=== PATIENT | female | born 1930 | race Caucasian/White ===

== ENCOUNTER 2017-12-27 20:15 | Inpatient (IN) | payer MEDICARE ==
[~2017-12-27] VITALS: Ht 142.2 cm; Wt 43.1 kg
--- NOTE | 2017-12-27 21:00 | NUR ---
PT PRESENTED TO THE ER WITH A C/O ABD PAIN AND DIARRHEA SINCE 1400 TODAY. PT STATED THAT SHE DID NOT EAT ANYTHING DIFFERENT, DENIES COLD OR FLU LIKE SYMPTOMS AND HAS NOT STARTED ANY NEW MEDICATIONS. PT IS AA&O X4. PT IS ON THE MONITOR AND CONTINOUS PULSE OX. PT IS REFUSING A RITTER CATH AND STATED THAT SHE CAN NOT GIVE A CLEAN CATCH URINE DUE TO THE DIARRHEA. DR. MANLEY NOTIFIED.
--- NOTE | 2017-12-27 21:07 | NUR ---
BLOOD SENT TO LAB.
--- NOTE | 2017-12-27 21:10 | NUR ---
PT AMBULATED TO THE BATHROOM WITH A STEADY GAIT.
[2017-12-27 21:11] LABS: HEMATOCRIT 50 % (33-45); MEAN CORPUSCULAR VOLUME 87 fL (82-100); RED BLOOD CELL COUNT(AUTO) 5.68 MIL/uL (4.0-5.2)
[2017-12-27 21:14] LABS: BASOPHILS # (AUTO) 0.3 /CMM (0.0-0.2); BASOPHILS % (AUTO) 1.3 % (0.0-2.0); EOSINOPHILS % (AUTO) 1.1 % (0.0-6.0); HEMOGLOBIN 17.3 g/dL (11.5-14.8); LYMPHOCYTES # (AUTO) 2.6 /CMM (0.8-4.8); MEAN CORPUSCULAR HGB CONC 35 g/dl (31.0-36.0); MONOCYTES % (AUTO) 4.4 % (2.0-12.0); NEUTROPHILS # (AUTO) 19.6 /CMM (1.8-8.9); NEUTROPHILS % (AUTO) 82.2 % (43.0-81.0); PLATELET COUNT (AUTO) 333 /CMM (150-450); RDW COEFFICIENT OF VARIATION 12.6 (11.5-15.0); WHITE BLOOD COUNT (AUTO) 23.8 K/uL (4.3-11.0)
[2017-12-27 21:25] LABS: CARBON DIOXIDE 29 mmol/L (21-32); CHLORIDE 99 mmol/L (98-107); CREATININE 1.1 mg/dL (0.6-1.3); GLUCOSE 150 mg/dL (74-106); SODIUM SERUM 136 mmol/L (136-145); UREA NITROGEN, BLOOD 17 mg/dL (7-18)
[2017-12-27 21:28] LABS: INR 0.91 (0.85-1.15)
[2017-12-27 21:32] LABS: ALANINE AMINOTRANSFERASE 31 U/L (12-78); ALBUMIN 3.7 g/dL (3.4-5.0); ALKALINE PHOSPHATASE 131 U/L (46-116); ASPARTATE AMINOTRANSFERASE 22 U/L (15-37); BILIRUBIN,DIRECT 0.1 mg/dL (0.0-0.2); BILIRUBIN,TOTAL 0.4 mg/dL (0.2-1.0); LIPASE 269 U/L (73-393); TOTAL PROTEIN, SERUM 7.8 g/dL (6.4-8.2)
[2017-12-27] MEDS ORDERED: CIPROFLOXACIN IV RTU 400 MG in PREMIX 1 EA IV STA (21:45)
[2017-12-27 21:48] LABS: LYMPHOCYTES % (MANUAL) 6 % (16-48); MONOCYTES % (MANUAL) 18 % (0-11.0); NEUTROPHILS % (MANUAL) 76 (42-76)
[2017-12-27] MEDS ORDERED: CIPROFLOXACIN IV RTU 200 ML IV ONE (21:50)
[2017-12-27] MEDS ORDERED: METRONIDAZOLE 500MG/ NS 100ML 100 ML IV ONE (21:50)
[2017-12-27] MEDS ORDERED: FLAGYL/NS RTU 500 MG/100 ML PIGGYBACK IV ONE (22:00)
--- NOTE | 2017-12-27 22:05 | NUR ---
PT'S BP IS STILL ELEVATED.
--- NOTE | 2017-12-27 22:06 | NUR ---
CALLED [employer] CAP INSPECTOR WAS PAGED.
--- NOTE | 2017-12-27 22:10 | NUR ---
ROOM [id number]
--- NOTE | 2017-12-27 22:21 | NUR ---
CALL MAC IBARRA, AT [phone]
[2017-12-27] MEDS ORDERED: ONDANSETRON HCL/PF 4 MG/2 ML VIAL ONE (22:27)
[2017-12-27] MEDS ORDERED: MORPHINE SULFATE INJ 4 MG/ML DISP.SYRIN ONE (22:27)
[2017-12-27] MEDS ORDERED: ONDANSETRON HCL/PF - ER 4 MG/2 ML VIAL IV ONE (22:30)
[2017-12-27] MEDS ORDERED: MORPHINE SULFATE INJ 2 MG/ML DISP.SYRIN IV PRN (22:30)
[2017-12-27] MEDS ORDERED: NIFE-2 PO (22:33)
[2017-12-27] MEDS ORDERED: TRAZ-182 PO (22:33)
[2017-12-27] MEDS ORDERED: SIMV40TA5 PO (22:33)
[2017-12-27] MEDS ORDERED: VALS320T2 PO (22:33)
[2017-12-27] MEDS ORDERED: AMLO5TAB7 PO (22:33)
[2017-12-27] MEDS ORDERED: HYDR-4076 PO (22:33)
[2017-12-27] MEDS ORDERED: LEVO50TA8 PO (22:33)
[2017-12-27] MEDS ORDERED: CARV12.52 PO (22:33)
[2017-12-27] MEDS ORDERED: CITA10TA9 PO (22:33)
--- NOTE | 2017-12-27 22:38 | NUR ---
REPORT GIVEN TO NICOLETTE/RN ON BEHALF OF PRIMARY NURSE NITISH.
--- NOTE | 2017-12-27 22:38 | NUR ---
ENDORSED CIPRO IV TO RECEIVING NURSE NICOLETTE TO INFUSE ON THE FLOOR. FLAGYL INFUSING TO THE FLOOR WITH PT.
--- NOTE | 2017-12-27 22:46 | NUR ---
PT'S O2 SAT DROPPED TO 90%. PT WAS PLACED ON 2L O2 VIA NC.
--- NOTE | 2017-12-27 22:50 | NUR ---
PT LEFT VIA GURNEY TO MS.
[2017-12-27 22:55] VITALS: BP 156/80
--- NOTE | 2017-12-27 22:55 | NUR ---
ADMISSION NOTES: RECEIVED REPORT FROM KIARA CARRINGTON, PT IS 87 Y/F, CAME IN FOR DIARRHEA SINCE 1300 AND NAUSEA AND FEELING OF DRY HEAVES, WILL BE ADMITTED FOR ACUTE COLITIS. PT HAS LEFT AC G 20 PATENT AND FLUSHING WELL, CURRENTLY INFUSING WITH FLAGYL (ABOUT TO FINISH). PT IS A/O X4 AMBULATORY ON RA DENIES ANY SOB BUT IS C/O ABDOMINAL PAIN, CRAMPING AND BELCHING. PT ASSISTED TO THE BATHROOM AND HAVE BOWEL MOVEMENT NOTED TO BE LIQUID AND BLOODY IT IS REDDISH IN COLOR, PT STATED ITS MIXED WITH HER URINE SO UNABLE TO COLLECT STOOL SPECIMEN FOR LAB. WILL TRY AGAIN LATER. SKIN ASSESSMENT PERFORMED AND NO SKIN ISSUES NOTED. INVENTORY OF BELONGINGS COMPLETED AND PERFORMED BY PEER TUTOR, PT HAS BILATERAL HEARING AIDS AND PLACED IN A CONTAINER WITH PT'S NAME/STICKER. ORIENTED PT TO UNIT POLICY AND HOURLY ROUNDING, VS TAKEN AND RECORDED, SAFETY PRECAUTIONS FOR FALL INITIATED, CALL LIGHT IN REACH, WILL CONTINUE MONITORING PT
[2017-12-27 22:56] LABS: APPEARANCE,URINE CLEAR (CLEAR); BILIRUBIN,URINE NEGATIVE (NEGATIVE); BLOOD, URINE TRACE-INTA Ery/uL (NEGATIVE); KETONES,URINE NEGATIVE (NEGATIVE); LEUKOCYTE ESTERASE ,URINE NEGATIVE (NEGATIVE); NITRITE, URINE NEGATIVE (NEGATIVE); PROTEIN,URINE NEGATIVE (NEGATIVE); UGLUCOSE NEGATIVE (NEGATIVE); UROBILINOGEN,URINE 0.2 EU/dL (0.2)
[2017-12-27 22:57] LABS: COLOR,URINE DARK YELLOW (YELLOW)
[2017-12-27 23:04] LABS: BACTERIA,URINE Few /HPF (None Seen); SQUAMOUS EPITHELIAL CELL,UR Few /HPF (None Seen); WBC,URINE 0-2 /HPF (0-3)
--- NOTE | 2017-12-27 23:16 | NUR ---
PT NEW ADMIT, PER RESPIRATORY CARE ASSISTANT VERENA UNABLE TO ADMINISTER CIPRO IN ER PT STILL RECEIVING FLAGYL. WHEN PT REACH THE FLOOR/MS 2 UNIT, FLAGYL IS FINISHED. RECEIVED CALL FROM SONA ALBARADO, STATED TO ADMINISTER CIPRO PER MD ORDER. NOW ADMINISTERING CIPRO.
[2017-12-27] MEDS ORDERED: LEVOFLOXACIN 500 MG /D5W 100ML 500 MG in PREMIX 1 EA IV SCH (23:30)
[2017-12-27] MEDS ORDERED: Z GUARD REMEDY 2 OZ OINT TP PRN (23:30)
[2017-12-27] MEDS ORDERED: MAGNESIUM HYDROXIDE 30 ML UDC PO PRN (23:30)
--- NOTE | 2017-12-27 23:40 | NUR ---
RN NOTES: VOICE STUDIES DIRECTOR MD CURRENTLY AT BED SIDE FOR EVAL AND H&P. INFORMED MD REGARDING PT'S CODE STATUS RELAYING SHE WOULD LIKE TO BE DNR, BUT LIVING WILL COPY COULD NOT BE PROVIDED HER DAUGHTER LIVES IN [place].
--- NOTE | 2017-12-27 23:45 | NUR ---
RN NOTES: MD MADE AWARE OF PT'S BLOODY STOOL, BUT NO FOUL ODOR NOTED, WILL COLLECT STOOL SPECIMEN FOR CDIFF AND CULTURE
--- NOTE | 2017-12-27 23:48 | NUR ---
NON ADMIN OF LEVAQUIN: DR SERRA AT BED SIDE, INFORMED MD ABOUT IV ATB PT RECEIVED SUCH FLAGYL AND NOW CIPROFLOXACIN IS INFUSING, RN INFORMED MD REGARDING HIS ORDER FOR LEVAQUIN, PER MD DO NOT GIVE THE LEVAQUIN TONIGHT BUT INSTEAD JUST GIVE IT TOMORROW SINCE PT ALREADY RECEIVED CIPROFLOXACIN NOW.
[2017-12-27] MEDS: MAG HYDROX/AL HYDROX/SIMETH 30 ML UDC PO PRN (23:54)
[2017-12-27] MEDS: HYDROCODONE/APAP 5/325MG 1 EACH TABLET PO PRN (23:55)
--- NOTE | 2017-12-27 23:55 | NUR ---
PRN NORCO AND MAALOX: ADMINISTERED PRN NORCO 5/325 MG FOR PT'S C/O ABDOMINAL PAIN /10 AND MAALOX FOR PT'S C/O BELCHING. WILL CONTINUE MONITORING PT
[2017-12-28] VITALS: BP 156/80
--- NOTE | 2017-12-28 00:17 | NUR ---
RN NOTES: PER CLIENT SERVICES ACCOUNT MANAGER MD TO ORDER MORPHINE 1MG IVP EVERY 4HRS PRN FOR SEVERE PAIN TO HELP MANAGING PATIENT'S PAIN
[2017-12-28] MEDS: IV NS 0.9% 1,000 ML IV PRN ×2 (00:20→16:40)
[2017-12-28 01:00] VITALS: BP 144/77
[2017-12-28] MEDS: MORPHINE SULFATE INJ 2 MG/ML DISP.SYRIN IV PRN ×4 (01:08→16:39)
--- NOTE | 2017-12-28 01:08 | NUR ---
PRN MORPHINE: PRN MORPHINE 1MG IVP ADMINISTERED TO THE PT FOR C/O 9/10 ABDOMINAL PAIN, WILL CONTINUE TO MONITOR AND REASSESS
[2017-12-28] MEDS: ONDANSETRON HCL/PF 4 MG/2 ML VIAL IVP PRN ×2 (02:26→08:27)
--- NOTE | 2017-12-28 02:26 | NUR ---
PRN ZOFRAN: PRN ZOFRAN ADMINISTERED FOR PT'S C/O NAUSEA
[2017-12-28] MEDS: HYDROCODONE/APAP 5/325MG 1 EACH TABLET PO PRN ×2 (04:03→11:30)
--- NOTE | 2017-12-28 04:04 | NUR ---
PRN NORCO: PT STILL C/O ABDOMINAL PAIN, REQUESTING FOR NORCO. PRN NORCO ADMINISTERED TO THE PT AT THIS TIME.
[2017-12-28] MEDS ORDERED: METRONIDAZOLE 500MG/ NS 100ML 100 ML IV ONE (05:44)
[2017-12-28] MEDS: METRONIDAZOLE 500MG/ NS 100ML 500 MG in PREMIX 1 EA IV SCH ×3 (05:48→21:20)
[2017-12-28 05:50] VITALS: BP 146/80
--- NOTE | 2017-12-28 06:01 | NUR ---
prn morphine: pt c/o 05/22 abdominal pain, stated its a lot better but the pain still there and its giving her discomfort, pt requesting for morphine, prn morphine 1mg ivp administered to the pt at this time, will continue monitoring pt's pain level
[2017-12-28 06:44] LABS: HEMATOCRIT 49 % (33-45); HEMOGLOBIN 16.3 g/dL (11.5-14.8); LYMPHOCYTES % (AUTO) 6.7 % (20.0-44.0); MEAN CORPUSCULAR HGB CONC 33 g/dl (31.0-36.0); MEAN CORPUSCULAR VOLUME 89 fL (82-100); MONOCYTES # (AUTO) 0.7 /CMM (0.1-1.30); MONOCYTES % (AUTO) 2.2 % (2.0-12.0); NEUTROPHILS # (AUTO) 27.5 /CMM (1.8-8.9); NEUTROPHILS % (AUTO) 91.1 % (43.0-81.0); PLATELET COUNT (AUTO) 307 /CMM (150-450); RDW COEFFICIENT OF VARIATION 13.8 (11.5-15.0); RED BLOOD CELL COUNT(AUTO) 5.53 MIL/uL (4.0-5.2)
[2017-12-28 06:52] LABS: CHOLESTEROL 169 mg/dL (<200); HDL CHOLESTEROL 92 mg/dL (40-60); LDL 87 mg/dL (0-99); TRIGLYCERIDES 98 mg/dL (30-150)
--- NOTE | 2017-12-28 06:53 | NUR ---
RN CLOSING NOTES: PT IN BED, AWAKE, REMAINS ON RA, LAST PAIN MEDS GIVEN AT 0600AM, PT STILL C/O ABDOMINAL CRAMPING. IV ACCESS REMAINS PATENT AND FLUSHING WELL, INFUSING WITH NS AT 75ML/HR. STILL NEEDS STOOL FOR CDIFF, UNABLE TO COLLECT DUE TO STOOL KEPT MIXING WITH URINE DESPITE PUTTING 2 HATS IN THE TOILET BOWL. WILL INFORM DAY RN TO PLEASE COLLECT TODAY, VS REMAINS STABLE, NEEDS ATTENDED. SAFETY PRECAUTIONS FOR FALL REMAINS ENGAGED, CALL LIGHT IN REACH, WILL ENDORSE TO DAY RN FOR RICHI.
[2017-12-28 06:54] LABS: ALANINE AMINOTRANSFERASE 20 U/L (12-78); ALBUMIN 3.2 g/dL (3.4-5.0); ALKALINE PHOSPHATASE 110 U/L (46-116); ASPARTATE AMINOTRANSFERASE 19 U/L (15-37); BILIRUBIN,TOTAL 1.4 mg/dL (0.2-1.0); CALCIUM, SERUM 10.3 mg/dL (8.5-10.1); CARBON DIOXIDE 27 mmol/L (21-32); CHLORIDE 101 mmol/L (98-107); GLUCOSE 138 mg/dL (74-106); MAGNESIUM 2.2 mg/dL (1.8-2.4); PHOSPHORUS 4.2 mg/dL (2.5-4.9); POTASSIUM 4.9 mmol/L (3.5-5.1); SODIUM SERUM 135 mmol/L (136-145); TOTAL PROTEIN, SERUM 6.8 g/dL (6.4-8.2); UREA NITROGEN, BLOOD 14 mg/dL (7-18)
--- NOTE | 2017-12-28 06:55 | NUR ---
CRITICAL LAB RESULT FOR WBC: RECEIVED CRITICAL LAB RESULT FOR WBC 30.2, REPORTED BY CHANTEL FROM LAB, CONTA[facility]ED [facility] DIRECTOR OF CRITICAL CARE , AWAITING FOR CALL BACK. PT ON IV ANTIBIOTIC FLAGYL AND CIPROFLOXACIN AND WILL HAVE LEVAQUIN DURING THE MORNING
[2017-12-28 06:56] LABS: WHITE BLOOD COUNT (AUTO) 30.2 K/uL (4.3-11.0)
--- NOTE | 2017-12-28 07:07 | NUR ---
RN NOTES: PER MD ORDER TO GIVE LEVOFLOXACIN IN THE MORNING INSTEAD OF LAST NIGHT, THIS MEDICATION IS SCHEDULED LAST NIGHT AT 2330 HOWEVER DURING MD ROUNDS WHEN HE WAS TALKING TO THE PT, RN INFORMED MD THAT PT RECEIVED FLAGYL IV IN ER AND CIPROFLOXACIN IN THE UNIT (MS2), MD STATED TO JUST GIVE LEVOFLOXACIN IN THE MORNING. RELAYED TO PHARMACY, TALKED TO SESAR, AND SESAR STATED TO PUT A NEW ORDER TO CHANGE THE TIME OF THE ANTIBIOTIC SO IT WILL BE GIVEN IN THE MORNING.
--- NOTE | 2017-12-28 07:20 | NUR ---
RN NOTES: PT IN BED, AWAKE, REMAINS ON RA, LAST PAIN MEDS GIVEN AT 0600AM, PT STILL C/O ABDOMINAL CRAMPING, CONTINUED ON PAIN MANAGEMENT. IV ACCESS REMAINS PATENT AND FLUSHING WELL, INFUSING WITH NS AT 75ML/HR. STILL NEEDS STOOL FOR CDIFF, WILL REATTEMPT COLLECTION. VS REMAINS STABLE, NEEDS ATTENDED. SAFETY PRECAUTIONS FOR FALL REMAINS IN PLACE, CALL LIGHT IN REACH, WILL CONTINUE TO MONITOR
--- NOTE | 2017-12-28 07:36 | NUR ---
RN NOTES: RECEIVED CALL FROM DR LYMAN, RELAYED CRITICL LAB RESULT FOR WBC 30.2, INFORMED MD ABOUT PT ON IV ATB, PER MD "THAT'S OKAY FOR NOW, AND WILL WAIT FOR THE RESULT OF STOOL IF ITS POSITIVE FOR CDIFF, IF PT IS POSITIVE FOR CDIFF THEN FLAGYL WILL BE DC, BUT SINCE THERE IS NOT RESULT YET, SAID ITS OKAY FOR PT TO BE ON FLAGYL".
[2017-12-28 08:00] VITALS: BP 171/67
[2017-12-28] MEDS: AMLODIPINE BESYLATE 5 MG TABLET PO SCH (08:28)
[2017-12-28] MEDS: CARVEDILOL 12.5 MG TABLET PO SCH ×2 (08:28→16:39)
[2017-12-28] MEDS: hydrALAZINE HCL 25 MG TABLET PO SCH (08:28)
[2017-12-28] MEDS: VALSARTAN 80 MG TABLET PO SCH (09:00)
[2017-12-28] MEDS ORDERED: NIFEDIPINE PO SCH (09:00)
[2017-12-28] MEDS: CITALOPRAM HYDROBROMIDE 10 MG TABLET PO SCH (09:53)
[2017-12-28] MEDS: SIMVASTATIN 40 MG TABLET PO SCH (09:53)
[2017-12-28] MEDS: LEVOTHYROXINE SODIUM 50 MCG TABLET PO SCH (09:53)
[2017-12-28 10:01] LABS: BAND % (MANUAL) 4 % (0.0-5.0); LYMPHOCYTES % (MANUAL) 4 % (16-48); MONOCYTES % (MANUAL) 2 % (0-11.0); NEUTROPHILS % (MANUAL) 90 (42-76)
[2017-12-28 15:21] LABS: OCCULT BLOOD STOOL NEGATIVE (NEGATIVE)
[2017-12-28 16:00] VITALS: BP 106/50
[2017-12-28] MEDS: PANTOPRAZOLE 40 MG VIAL IV SCH (16:38)
[2017-12-28] MEDS: LEVOFLOXACIN 500 MG /D5W 100ML 500 MG in PREMIX 1 EA IV SCH (18:00)
[2017-12-28] MEDS: VANCOMYCIN HCL 125 MG/2.5 ML ORAL.SUSP PO SCH (18:30)
--- NOTE | 2017-12-28 18:36 | NUR ---
RN NOTES CLARIFIED DOSE FOR VANCOCIN WITH PHARMACY AND [employer] DOSE IS 125MG SYRINGE PROVIDED IS 125MG/5ML DOSE ADMINISTERED ORDERED WILL CONTINUE TO MONITOR
--- NOTE | 2017-12-28 18:49 | NUR ---
RN NOTES: PT IN BED, AWAKE ALERT AND VERBALLY RESPONSIVE REMAINS ON RA, CONTINUES ON PAIN MANAGEMENT, PT STILL C/O ABDOMINAL. IV ACCESS REMAINS PATENT AND FLUSHING WELL, INFUSING WITH NS AT 75ML/HR. VS REMAINS STABLE, NEEDS ATTENDED. SAFETY PRECAUTIONS FOR FALL REMAINS IN PLACE, CALL LIGHT IN REACH, WILL CONTINUE TO MONITOR AND ENDORSE TO NEXT SHIFT FOR CONTINUITY OF CARE
[2017-12-28 20:00] VITALS: BP 108/57
[2017-12-28] MEDS: TRAZODONE 50 MG TABLET PO SCH (21:20)
[2017-12-28] MEDS: HYDROCODONE/APAP 10/325MG 1 EA TABLET PO PRN (21:32)
[2017-12-29] MEDS: VANCOMYCIN HCL 125 MG/2.5 ML ORAL.SUSP PO SCH ×4 (00:28→17:12)
[2017-12-29 05:09] LABS: BASOPHILS # (AUTO) 0.1 /CMM (0.0-0.2); BASOPHILS % (AUTO) 0.3 % (0.0-2.0); EOSINOPHILS % (AUTO) 0.5 % (0.0-6.0); HEMATOCRIT 42 % (33-45); HEMOGLOBIN 14.1 g/dL (11.5-14.8); LYMPHOCYTES % (AUTO) 8.8 % (20.0-44.0); MEAN CORPUSCULAR HGB CONC 34 g/dl (31.0-36.0); MEAN CORPUSCULAR VOLUME 89 fL (82-100); MONOCYTES % (AUTO) 4.2 % (2.0-12.0); NEUTROPHILS # (AUTO) 19.7 /CMM (1.8-8.9); NEUTROPHILS % (AUTO) 86.2 % (43.0-81.0); PLATELET COUNT (AUTO) 226 /CMM (150-450); RDW COEFFICIENT OF VARIATION 14.1 (11.5-15.0); RED BLOOD CELL COUNT(AUTO) 4.74 MIL/uL (4.0-5.2); WHITE BLOOD COUNT (AUTO) 22.9 K/uL (4.3-11.0)
[2017-12-29 05:27] LABS: CALCIUM, SERUM 8.5 mg/dL (8.5-10.1); CARBON DIOXIDE 29 mmol/L (21-32); CHLORIDE 105 mmol/L (98-107); CREATININE 1.2 mg/dL (0.6-1.3); GLUCOSE 111 mg/dL (74-106); PHOSPHORUS 2.7 mg/dL (2.5-4.9); POTASSIUM 4.3 mmol/L (3.5-5.1); SODIUM SERUM 138 mmol/L (136-145); UREA NITROGEN, BLOOD 18 mg/dL (7-18)
[2017-12-29] MEDS: METRONIDAZOLE 500MG/ NS 100ML 500 MG in PREMIX 1 EA IV SCH ×3 (05:59→20:31)
--- NOTE | 2017-12-29 06:50 | NUR ---
MS RN NOTES AWAKE & RESPONSIVE. NOT IN ANY DISTRESS. NO SOB NOTED. DENIES ANY PAIN OR DISCOMFORT AT THIS TIME. WITH IVF INFUSING WELL. MONITORED ACCORDINGLY. CALL LIGHT WITHIN REACH. BED IN LOWEST POSITION. SR UP X 2 FOR SAFETY. WILL ENDORSE TO NEXT SHIFT.
--- NOTE | 2017-12-29 07:42 | NUR ---
M/S RN - Assessment Patient awake, A/O x 4, denies abdominal pain, currently on 6lpm via nasal cannula. IVF NS @ 75 ml/hr infusing well on the left hand with no signs of infiltration. Skin is intact, patient independent with bed mobility. All needs attended and met. Patient updated on plan of care. Will continue with current medical management.
[2017-12-29 08:00] VITALS: BP 146/72
[2017-12-29] MEDS: HYDROCODONE/APAP 10/325MG 1 EA TABLET PO PRN ×2 (08:17→18:48)
[2017-12-29] MEDS: AMLODIPINE BESYLATE 5 MG TABLET PO SCH (08:25)
[2017-12-29] MEDS: LEVOTHYROXINE SODIUM 50 MCG TABLET PO SCH (08:25)
[2017-12-29] MEDS: SIMVASTATIN 40 MG TABLET PO SCH (08:25)
[2017-12-29] MEDS: hydrALAZINE HCL 25 MG TABLET PO SCH (08:25)
[2017-12-29] MEDS: CITALOPRAM HYDROBROMIDE 10 MG TABLET PO SCH (08:25)
[2017-12-29] MEDS: VALSARTAN 80 MG TABLET PO SCH (08:25)
[2017-12-29] MEDS: CARVEDILOL 12.5 MG TABLET PO SCH ×2 (08:26→17:12)
[2017-12-29] MEDS: PANTOPRAZOLE 40 MG VIAL IV SCH (12:16)
[2017-12-29] MEDS: IV NS 0.9% 1,000 ML IV PRN (12:22)
[2017-12-29] MEDS: ACETAMINOPHEN 325 MG TABLET PO PRN (14:22)
[2017-12-29 16:00] VITALS: BP 115/69
--- NOTE | 2017-12-29 18:15 | NUR ---
M/S RN - Notes No new events seen. Patient c/o abdominal pain, [place] given once with relief, denies n/v, no loose stool episodes during the shift, still on clear liquid diet. Continue IVF NS at 75 ml/hr to maintain hydration and antibiotics. Patient and daughter Jacquelin updated on plan of care. Will continue with current medical management.
--- NOTE | 2017-12-29 19:30 | NUR ---
MS RN NOTES RECEIVED ON BED A/O X4,BREATHING NON LABORED,O2 SAT 95% ON 3L/NC.IVF NS AT 75ML/HR RATE IN PROGRESS,INFUSING ON LFA VIA IV PUMP,SITE PATENT.DENIES PAIN AT THE MOMENT,CALL LIGHT IN REACH,NEEDS ANTICIPATED.
[2017-12-29 20:01] VITALS: BP 135/77
[2017-12-29] MEDS: TRAZODONE 50 MG TABLET PO SCH (21:25)
--- NOTE | 2017-12-30 | NUR ---
MS RN NOTES AWAKE,ASSISTED TO THE BATHROOM,C/O INSOMNIA,AMBIEN 5MG PO GIVEN
[2017-12-30] MEDS: ZOLPIDEM TARTRATE 5 MG TABLET PO PRN ×2 (00:05→20:36)
[2017-12-30] MEDS: VANCOMYCIN HCL 125 MG/2.5 ML ORAL.SUSP PO SCH ×4 (00:07→17:28)
[2017-12-30] MEDS: METRONIDAZOLE 500MG/ NS 100ML 500 MG in PREMIX 1 EA IV SCH ×3 (05:07→20:34)
--- NOTE | 2017-12-30 06:00 | NUR ---
MS RN NOTES IV SITE LEAKING,NEW SALINE LOCK PLACE ON LFA #22.SAME IVF INFUSING AT THIS TIME.
[2017-12-30] MEDS: IV NS 0.9% 1,000 ML IV PRN (06:28)
--- NOTE | 2017-12-30 06:47 | NUR ---
MS RN NOTES FAIRLY RESTED AT [facility],NO DIARRHEA NOTED,ASSIST TO THE BATHROOM.IV ABX TOLERATED WELL.CALL LIGHT IN REACH,NEEDS ATTENDED.AWAITING GI FOR EGD/COLONOSCOPY IF CLINICALLY WARRANTED.IN NO ACUTE DISTRESS.DNR STATUS.WILL ENDORSE TO ELODIA CARRINGTON FOR RICHI.
[2017-12-30 07:00] LABS: BASOPHILS # (AUTO) 0.1 /CMM (0.0-0.2); BASOPHILS % (AUTO) 0.3 % (0.0-2.0); EOSINOPHILS % (AUTO) 0.5 % (0.0-6.0); HEMATOCRIT 38 % (33-45); HEMOGLOBIN 12.9 g/dL (11.5-14.8); LYMPHOCYTES # (AUTO) 2.4 /CMM (0.8-4.8); LYMPHOCYTES % (AUTO) 11.3 % (20.0-44.0); MEAN CORPUSCULAR HGB CONC 34 g/dl (31.0-36.0); MEAN CORPUSCULAR VOLUME 88 fL (82-100); MONOCYTES # (AUTO) 1.1 /CMM (0.1-1.30); MONOCYTES % (AUTO) 4.9 % (2.0-12.0); PLATELET COUNT (AUTO) 270 /CMM (150-450); RDW COEFFICIENT OF VARIATION 14.1 (11.5-15.0); WHITE BLOOD COUNT (AUTO) 21.7 K/uL (4.3-11.0)
[2017-12-30 07:12] LABS: CALCIUM, SERUM 7.6 mg/dL (8.5-10.1); CARBON DIOXIDE 22 mmol/L (21-32); CHLORIDE 109 mmol/L (98-107); GLUCOSE 87 mg/dL (74-106); MAGNESIUM 2.2 mg/dL (1.8-2.4); PHOSPHORUS 1.6 mg/dL (2.5-4.9); POTASSIUM 4.2 mmol/L (3.5-5.1); SODIUM SERUM 142 mmol/L (136-145); UREA NITROGEN, BLOOD 12 mg/dL (7-18)
--- NOTE | 2017-12-30 07:26 | NUR ---
MS RN OPENING NOTES RECEIVED PATIENT IN STABLE CONDITION. IN NO APPARENT DISTRESS. BEDSIDE RAILS ARE UPX2. BED IS LOCKED AND LOWERED. CALL LIGHT IS WITHIN REACH. WILL CONTINUE TO MONITOR.
[2017-12-30 08:00] VITALS: BP 122/77
[2017-12-30] MEDS: SIMVASTATIN 40 MG TABLET PO SCH (08:28)
[2017-12-30] MEDS: CITALOPRAM HYDROBROMIDE 10 MG TABLET PO SCH (08:29)
[2017-12-30] MEDS: LEVOTHYROXINE SODIUM 50 MCG TABLET PO SCH (08:29)
[2017-12-30] MEDS: hydrALAZINE HCL 25 MG TABLET PO SCH (08:29)
[2017-12-30] MEDS: AMLODIPINE BESYLATE 5 MG TABLET PO SCH (08:29)
[2017-12-30] MEDS: CARVEDILOL 12.5 MG TABLET PO SCH ×2 (08:29→16:26)
[2017-12-30] MEDS: VALSARTAN 80 MG TABLET PO SCH (08:40)
[2017-12-30] MEDS ORDERED: K PHOS NEUTRAL 250 MG TABLET PO ONE ×2 (14:00→14:30)
--- NOTE | 2017-12-30 14:22 | NUR ---
ADMINISTERED NEUTRA PHOSPH 500 MG TABLET.
[2017-12-30] MEDS ORDERED: HYOSCYAMINE SULFATE 0.125 MG TAB.SUBL SL PRN (15:00)
[2017-12-30 16:00] VITALS: BP 119/70
[2017-12-30] MEDS: PANTOPRAZOLE 40 MG VIAL IV SCH (16:17)
[2017-12-30] MEDS: LEVOFLOXACIN 500 MG /D5W 100ML 500 MG in PREMIX 1 EA IV SCH (16:20)
--- NOTE | 2017-12-30 17:27 | NUR ---
PER PHARMACY OK TO GIVE 125 MG/5ML. ORDER ON EMAR READS 125MG/2.5ML. PER PHARMACY OK TO GIVE.
--- NOTE | 2017-12-30 18:26 | NUR ---
MS RN CLOSING NOTES PATIENT IS IN STABLE CONDITION. IN NO APPARENT DISTRESS. VITAL SIGNS WITHIN NORMAL LIMITS. CALL LIGHT IS WITHIN REACH. ALL NEEDS WERE MET. IV LINE IS INTACT AND PATENT. WILL ENDORSE CARE TO BANK ACCOUNTANT NURSE FOR RICHI.
[2017-12-30] MEDS: ONDANSETRON HCL/PF 4 MG/2 ML VIAL IVP PRN (19:29)
[2017-12-30 20:00] VITALS: BP 142/72
--- NOTE | 2017-12-30 20:00 | NUR ---
RECIEVED MS LAZER ALERT AND ORIENTATED ENJOYS CONVERSATION. MEDICATED FOR NAUSEA AND EFFECTIVE ACTIVE BS VIA AUSCULTATION NOT WITH A HEARING AID
[2017-12-30 20:35] VITALS: BP 142/72
[2017-12-30] MEDS: CLONIDINE HCL 0.1 MG TABLET PO SCH (20:35)
[2017-12-30] MEDS: TRAZODONE 50 MG TABLET PO SCH (21:57)
[2017-12-30] MEDS: GABAPENTIN 100 MG CAPSULE PO SCH (21:57)
[2017-12-31] MEDS: VANCOMYCIN HCL 125 MG/2.5 ML ORAL.SUSP PO SCH ×4 (00:10→17:28)
[2017-12-31] MEDS: IV NS 0.9% 1,000 ML IV PRN (01:12)
[2017-12-31 02:32] VITALS: BP 126/66
[2017-12-31 03:10] VITALS: BP 147/60
--- NOTE | 2017-12-31 04:35 | NUR ---
END NOTES: PATIENT SLEPT WELL THRU THE NIGHT, AWAKENING TO GO TO THE BATHROOM.sTEADY ON HER LED, BUT AWARE SHE IS TO CALL PRIOR GETTING OOB FOR SAFETY, AND SHE HAS BEEN COOPERATIVE TO DO THIS. MEDICATED X1 FOR NAUSEA WITH ZOFRAN AND THIS WAS EFFECTIVE.
[2017-12-31] MEDS: METRONIDAZOLE 500MG/ NS 100ML 500 MG in PREMIX 1 EA IV SCH ×3 (04:52→21:18)
[2017-12-31] MEDS: CLONIDINE HCL 0.1 MG TABLET PO SCH ×3 (04:52→21:19)
[2017-12-31 06:50] LABS: BASOPHILS % (AUTO) 0.2 % (0.0-2.0); EOSINOPHILS % (AUTO) 0.2 % (0.0-6.0); HEMATOCRIT 34 % (33-45); HEMOGLOBIN 11.6 g/dL (11.5-14.8); LYMPHOCYTES # (AUTO) 1.5 /CMM (0.8-4.8); LYMPHOCYTES % (AUTO) 9.1 % (20.0-44.0); MEAN CORPUSCULAR HGB CONC 34 g/dl (31.0-36.0); MEAN CORPUSCULAR VOLUME 89 fL (82-100); MONOCYTES # (AUTO) 0.8 /CMM (0.1-1.30); NEUTROPHILS # (AUTO) 14.2 /CMM (1.8-8.9); NEUTROPHILS % (AUTO) 85.5 % (43.0-81.0); PLATELET COUNT (AUTO) 241 /CMM (150-450); RDW COEFFICIENT OF VARIATION 13.7 (11.5-15.0); RED BLOOD CELL COUNT(AUTO) 3.87 MIL/uL (4.0-5.2); WHITE BLOOD COUNT (AUTO) 16.6 K/uL (4.3-11.0)
[2017-12-31 06:59] LABS: CALCIUM, SERUM 6.8 mg/dL (8.5-10.1); CARBON DIOXIDE 22 mmol/L (21-32); CHLORIDE 105 mmol/L (98-107); CREATININE 0.9 mg/dL (0.6-1.3); GLUCOSE 88 mg/dL (74-106); POTASSIUM 3.9 mmol/L (3.5-5.1); SODIUM SERUM 137 mmol/L (136-145); UREA NITROGEN, BLOOD 13 mg/dL (7-18)
[2017-12-31 07:59] VITALS: BP 124/52
[2017-12-31] MEDS: CARVEDILOL 12.5 MG TABLET PO SCH ×2 (08:08→16:09)
[2017-12-31] MEDS: HYDROCODONE/APAP 10/325MG 1 EA TABLET PO PRN (08:09)
[2017-12-31] MEDS: SIMVASTATIN 40 MG TABLET PO SCH (08:09)
[2017-12-31] MEDS: CITALOPRAM HYDROBROMIDE 10 MG TABLET PO SCH (08:09)
[2017-12-31] MEDS: VALSARTAN 80 MG TABLET PO SCH (08:09)
[2017-12-31] MEDS: OXYBUTYNIN CHLORIDE ER 5 MG TAB PO SCH (08:09)
[2017-12-31] MEDS: NIFEdipine XL 60 MG TAB PO SCH (08:09)
[2017-12-31] MEDS: hydrALAZINE HCL 25 MG TABLET PO SCH (08:10)
[2017-12-31] MEDS: LEVOTHYROXINE SODIUM 50 MCG TABLET PO SCH (08:10)
[2017-12-31] MEDS ORDERED: Calcium Gluconate 0.465 MEQ/ML VIAL IV ONE (15:00)
[2017-12-31] MEDS ORDERED: Calcium Gluconate 1GM/10ML 4.65 MEQ in IV NS 0.9% 50 ML IV ONE (15:30)
[2017-12-31] MEDS: clonazePAM 0.5 MG TABLET PO PRN (15:58)
[2017-12-31 16:00] VITALS: BP 107/52
[2017-12-31] MEDS: PANTOPRAZOLE 40 MG VIAL IV SCH (16:09)
--- NOTE | 2017-12-31 16:33 | NUR ---
ADMINISTERED CALCIUM GLUCONATE. 2 ORDERS INPUTTED INTO THE EMAR INCORRECTLY. NOTIFIED PHARMACY. PHARMACY ADVISED TO NON ADMINISTER ONE OF THE ORDERS AND ADMINISTER ONLY ONE.
--- NOTE | 2017-12-31 19:20 | NUR ---
MS RN CLOSING NOTES PATIENT IN STABLE CONDITION. IN NO APPARENT DISTRESSED. BEDSIDE RAILS ARE UPX2. BED IS LOCKED AND LOWERED. CALL LIGHT IS WITHIN REACH. WILL ENDORSE CARE TO GUIDE CHANGER NURSE FOR RICHI.
--- NOTE | 2017-12-31 19:30 | NUR ---
MS RN NOTES RECEIVED ON BED A/O X3,BREATHING REGULAR,NOT IN ANY FORM OF DISTRESS,O2 IN USED AT 3L/NC,O2 SAT 95%.ABLE TO WALK WITH ASSIST TO THE TOILET.NEW SALINE LOCK PLACE ON LEFT HAND #22,SAME IVF INFUSING.CALL LIGHT IN REACH,NEEDS ANTICIPATED.
[2017-12-31 20:00] VITALS: BP 120/67
--- NOTE | 2017-12-31 21:00 | NUR ---
MS RN NOTES DUE FLAGYL 500MG IVPB HUNG
[2017-12-31] MEDS: TRAZODONE 50 MG TABLET PO SCH (21:20)
[2017-12-31] MEDS: GABAPENTIN 100 MG CAPSULE PO SCH (21:55)
[2018-01-01] MEDS: VANCOMYCIN HCL 125 MG/2.5 ML ORAL.SUSP PO SCH ×5 (00:11→23:55)
[2018-01-01] MEDS: ZOLPIDEM TARTRATE 5 MG TABLET PO PRN (00:20)
--- NOTE | 2018-01-01 00:20 | NUR ---
MS RN NOTES C/O INSOMNIA,AMBIEN 5MG PO PER PATIENT REQUEST.
[2018-01-01] MEDS: IV NS 0.9% 1,000 ML IV PRN (02:09)
[2018-01-01] MEDS: METRONIDAZOLE 500MG/ NS 100ML 500 MG in PREMIX 1 EA IV SCH ×3 (05:01→21:14)
[2018-01-01] MEDS: CLONIDINE HCL 0.1 MG TABLET PO SCH ×3 (05:02→21:16)
--- NOTE | 2018-01-01 07:13 | NUR ---
MS RN NOTES SLEPT WELL ON AND OFF,GOES TO THE RESTROOM WITH ASSIST,IV ABX TOLERATED WELL.IN NO ACUTE DISTRESS.ENDORSED TO DAY NURSE FOR RICHI.
--- NOTE | 2018-01-01 07:45 | NUR ---
MS RN OPENING NOTES RECEIVED PATIENT IN STABLE CONDITION. IN NO APPARENT DISTRESS. BEDSIDE RAILS ARE UP X2. BED IS LOCKED AND LOWERED. CALL LIGHT IS WITHIN REACH. IV LINE IS INTACT AND PATENT. WILL CONTINUE TO MONITOR.
[2018-01-01 08:00] VITALS: BP 137/64
[2018-01-01] MEDS: NIFEdipine XL 60 MG TAB PO SCH (08:28)
[2018-01-01] MEDS: CARVEDILOL 12.5 MG TABLET PO SCH ×2 (08:28→16:20)
[2018-01-01] MEDS: clonazePAM 0.5 MG TABLET PO PRN ×2 (08:28→21:23)
[2018-01-01] MEDS: hydrALAZINE HCL 25 MG TABLET PO SCH (08:29)
[2018-01-01] MEDS: VALSARTAN 80 MG TABLET PO SCH (08:29)
[2018-01-01] MEDS: OXYBUTYNIN CHLORIDE ER 5 MG TAB PO SCH (08:29)
[2018-01-01] MEDS: LEVOTHYROXINE SODIUM 50 MCG TABLET PO SCH (08:29)
[2018-01-01] MEDS: SIMVASTATIN 40 MG TABLET PO SCH (08:29)
[2018-01-01] MEDS: CITALOPRAM HYDROBROMIDE 10 MG TABLET PO SCH (08:30)
[2018-01-01 08:42] LABS: CALCIUM, SERUM 7.7 mg/dL (8.5-10.1); CARBON DIOXIDE 24 mmol/L (21-32); CHLORIDE 108 mmol/L (98-107); CREATININE 0.8 mg/dL (0.6-1.3); GLUCOSE 126 mg/dL (74-106); MAGNESIUM 1.9 mg/dL (1.8-2.4); PHOSPHORUS 1.5 mg/dL (2.5-4.9); SODIUM SERUM 137 mmol/L (136-145); UREA NITROGEN, BLOOD 12 mg/dL (7-18)
[2018-01-01 08:55] LABS: BASOPHILS % (AUTO) 0.3 % (0.0-2.0); EOSINOPHILS % (AUTO) 2.5 % (0.0-6.0); HEMATOCRIT 38 % (33-45); HEMOGLOBIN 12.9 g/dL (11.5-14.8); LYMPHOCYTES # (AUTO) 1.4 /CMM (0.8-4.8); LYMPHOCYTES % (AUTO) 13.2 % (20.0-44.0); MEAN CORPUSCULAR HGB CONC 34 g/dl (31.0-36.0); MEAN CORPUSCULAR VOLUME 88 fL (82-100); MONOCYTES # (AUTO) 0.8 /CMM (0.1-1.30); NEUTROPHILS # (AUTO) 7.8 /CMM (1.8-8.9); PLATELET COUNT (AUTO) 276 /CMM (150-450); RED BLOOD CELL COUNT(AUTO) 4.29 MIL/uL (4.0-5.2); WHITE BLOOD COUNT (AUTO) 10.3 K/uL (4.3-11.0)
[2018-01-01] MEDS: HYDROCODONE/APAP 10/325MG 1 EA TABLET PO PRN (11:19)
[2018-01-01] MEDS ORDERED: K PHOS NEUTRAL 250 MG TABLET PO ONE (12:30)
[2018-01-01] MEDS ORDERED: HYDROCODONE/APAP 5/325MG 1 EACH TABLET PO PRN (14:30)
--- NOTE | 2018-01-01 15:42 | NUR ---
PATIENT RETURNED FROM CT SCAN OF THE HEAD.
[2018-01-01 16:00] VITALS: BP 115/59
[2018-01-01] MEDS: PANTOPRAZOLE 40 MG VIAL IV SCH (16:19)
[2018-01-01] MEDS: LEVOFLOXACIN 500 MG /D5W 100ML 500 MG in PREMIX 1 EA IV SCH (16:20)
[2018-01-01] MEDS: ACETAMINOPHEN 325 MG TABLET PO PRN (16:38)
--- NOTE | 2018-01-01 18:17 | NUR ---
MS RN CLOSING NOTES PATIENT IS STABLE IN NO APPARENT DISTRESS. BEDSIDE RAILS ARE UPX2. BED IS LOCKED AND LOWERED. CALL LIGHT IS WITHIN REACH. ALL NEEDS WERE MET. WILL ENDORSE CARE TO QUALITY CONSULTANT NURSE FOR RICHI.
--- NOTE | 2018-01-01 19:45 | NUR ---
MS RN NOTES ON BED SLEEPING,EASILY AROUSABLE TO VERBAL STIMULI.IV ABX IN PROGRESS.FALL PRECAUTION OBSERVED,CALL LIGHT IN REACH,NEEDS ANTICIPATED.
[2018-01-01 20:00] VITALS: BP 135/64
--- NOTE | 2018-01-01 20:30 | NUR ---
MS RN NOTES CLAIMED IV SITE IS SO SORE,STILL PATENT.WANTS NEW SITE.NEW IV LINE PLACE ON RIGHT HAND #22.SAME IVF INFUSING
--- NOTE | 2018-01-01 21:23 | NUR ---
MS RN NOTES KLONOPIN 0.5MG PO GIVEN PER PATIENT REQUEST FOR ANXIETY
[2018-01-01] MEDS: GABAPENTIN 100 MG CAPSULE PO SCH (22:14)
[2018-01-01] MEDS: TRAZODONE 50 MG TABLET PO SCH (22:14)
[2018-01-02] MEDS: MAG HYDROX/AL HYDROX/SIMETH 30 ML UDC PO PRN ×2 (00:17→21:28)
[2018-01-02] MEDS: HYDROCODONE/APAP 5/325MG 1 EACH TABLET PO PRN (03:11)
--- NOTE | 2018-01-02 03:11 | NUR ---
MS RN NOTES FAIRLY RESTED AT NIGHT,IV ABX TOLERATED WELL,NO FALL,NO INJURY,BOTH HEARING AID IN USED.CALL LIGHT IN REACH,NEEDS ATTENDED.ENDORSED TO BERRY CARRINGTON FOR RIHCI.
[2018-01-02] MEDS: METRONIDAZOLE 500MG/ NS 100ML 500 MG in PREMIX 1 EA IV SCH ×2 (05:16→12:59)
[2018-01-02] MEDS: VANCOMYCIN HCL 125 MG/2.5 ML ORAL.SUSP PO SCH ×4 (05:19→23:34)
--- NOTE | 2018-01-02 07:30 | NUR ---
MS RN NOTES A/O X3, OXYGEN AT 2L VIA NC. ASSISTED TO THE BATHROOM, APPEARS SOB WITH EXERTION. DENIES PAIN. SAFETY MEASURES IN PLACE. WILL CONT TO MONITOR.
[2018-01-02 08:00] VITALS: BP 174/73
[2018-01-02] MEDS: OXYBUTYNIN CHLORIDE ER 5 MG TAB PO SCH (09:14)
[2018-01-02] MEDS: VALSARTAN 80 MG TABLET PO SCH (09:15)
[2018-01-02] MEDS: CITALOPRAM HYDROBROMIDE 10 MG TABLET PO SCH (09:15)
[2018-01-02] MEDS: hydrALAZINE HCL 25 MG TABLET PO SCH (09:16)
[2018-01-02] MEDS: NIFEdipine XL 60 MG TAB PO SCH (09:16)
[2018-01-02] MEDS: LEVOTHYROXINE SODIUM 50 MCG TABLET PO SCH (09:16)
[2018-01-02] MEDS: CARVEDILOL 12.5 MG TABLET PO SCH ×2 (09:18→17:20)
[2018-01-02] MEDS: SIMVASTATIN 40 MG TABLET PO SCH (09:19)
[2018-01-02 09:30] VITALS: BP 168/79
[2018-01-02 09:38] LABS: CALCIUM, SERUM 7.6 mg/dL (8.5-10.1); CARBON DIOXIDE 26 mmol/L (21-32); CHLORIDE 105 mmol/L (98-107); CREATININE 0.7 mg/dL (0.6-1.3); GLUCOSE 126 mg/dL (74-106); POTASSIUM 3.9 mmol/L (3.5-5.1); SODIUM SERUM 139 mmol/L (136-145); UREA NITROGEN, BLOOD 8 mg/dL (7-18)
[2018-01-02 09:59] LABS: BASOPHILS % (AUTO) 0.1 % (0.0-2.0); EOSINOPHILS % (AUTO) 2.3 % (0.0-6.0); HEMATOCRIT 38 % (33-45); LYMPHOCYTES # (AUTO) 1.3 /CMM (0.8-4.8); LYMPHOCYTES % (AUTO) 12.7 % (20.0-44.0); MEAN CORPUSCULAR HGB CONC 34 g/dl (31.0-36.0); MEAN CORPUSCULAR VOLUME 89 fL (82-100); MONOCYTES # (AUTO) 0.8 /CMM (0.1-1.30); MONOCYTES % (AUTO) 7.9 % (2.0-12.0); PLATELET COUNT (AUTO) 299 /CMM (150-450); RDW COEFFICIENT OF VARIATION 12.8 (11.5-15.0); RED BLOOD CELL COUNT(AUTO) 4.29 MIL/uL (4.0-5.2); WHITE BLOOD COUNT (AUTO) 10.3 K/uL (4.3-11.0)
[2018-01-02] MEDS ORDERED: HYDR-552 PO (11:28)
[2018-01-02] MEDS ORDERED: CARV12.52 PO (11:28)
[2018-01-02] MEDS: ACETAMINOPHEN 325 MG TABLET PO PRN (11:49)
[2018-01-02 12:58] VITALS: BP 156/80
[2018-01-02 16:00] VITALS: BP 163/81
[2018-01-02] MEDS ORDERED: IOHEXOL-350 100 ML VIAL IV ONE (16:46)
[2018-01-02] MEDS ORDERED: CT SWABBABLE VALVE TRANS SET 1 EA INFUS.SET MC ONE (16:47)
[2018-01-02] MEDS ORDERED: IV NS 0.9% 250 ML IV ONE (16:47)
[2018-01-02] MEDS: PANTOPRAZOLE 40 MG VIAL IV SCH (17:25)
[2018-01-02 17:35] VITALS: BP 163/81
[2018-01-02] MEDS: IV NS 0.9% 1,000 ML IV PRN (17:58)
--- NOTE | 2018-01-02 19:30 | NUR ---
rn note; RECEIVED PT IN BED. BREATHING EVENLY. NO SOB. USING SUPPLEMENTAL O2. NAD. W/ ONGOING DIARRHEA AND MILD ABD PAIN. NO N/V. ASSISTED PT TO THE BSC W/ A VERY SMALL DARK LOOSE BM.NEEDS ATTENDED. BED LOW LOCKED. CALL LIGHT WITHIN REACH. WILL CONT TO MONITOR .
--- NOTE | 2018-01-02 19:44 | NUR ---
MS RN CLOSING NOTES DENIES PAIN, OXYGEN AT 2L VIA NC. ASSISTED PATIENT TO THE BATHROOM MULTIPLE TIMES, EPISODE OF LOOSE STOOL X3, NON FOWL SMELLING STOOL, BROWN COLOR. STOOL C-DIFF NEGATIVE FROM HOSP RECORD. NOTED RECTAL PROLAPSED, NOTIFIED SPOOL HAULER-CARLOS, GI WILL BE CONSULTED PER HARVEY. NEW IV MIDLINE IN RANJITH G18 PATENT AND INTACT, IVF NS INFUSING AT 75ML/HR. DISCHARGE HOME HELD TODAY. SAFETY MEASURES IN PLACE. ENDORSED TO NIGHT RN.
[2018-01-02 20:00] VITALS: BP 147/75
--- NOTE | 2018-01-02 20:54 | NUR ---
PT WAS SEEN BY VAMSI PHILLIPS OF DR. SAWYER W/ A NEW ORDER FOR CBC IN AM AND START CLEAR LIQ. DIET. NEW ORDERS NOTED .
[2018-01-02] MEDS: GABAPENTIN 100 MG CAPSULE PO SCH (21:28)
[2018-01-02] MEDS: METRONIDAZOLE 500 MG TABLET PO SCH (21:28)
--- NOTE | 2018-01-02 21:28 | NUR ---
MAALOX GIVEN ORDERED PER PT'S REQUEST FOR C/O ABD DISCOMFORT , WILL CONT TO MONITOR ,
[2018-01-02] MEDS: MORPHINE SULFATE INJ 2 MG/ML DISP.SYRIN IV PRN (22:23)
--- NOTE | 2018-01-02 22:23 | NUR ---
MORPHINE GIVEN FOR C/O SEVERE ABD. PAIN. WILL CONT TO MONITOR ,
--- NOTE | 2018-01-02 23:14 | NUR ---
PT REPORTED SHE'S TAKING CLONAZEPAM AT HOME TO BE AB;E TO SLEEP AND REQUESTING TO RESUME THE HOME MED. PT'S RECORDS WERE REVIEWED . PER LIST OF HOME MEDS , SHE IS TAKING CLONAZEPAM 0.5MG . SPOKE TO DR. SERRA AND RELAYED PT'S REQUEST.WITH A NEW ORDER FROM MD Willie INGRAM.
[2018-01-02] MEDS ORDERED: clonazePAM 0.5 MG TABLET PO PRN (23:30)
[2018-01-03] MEDS: METRONIDAZOLE 500 MG TABLET PO SCH ×3 (05:55→21:21)
[2018-01-03] MEDS: VANCOMYCIN HCL 125 MG/2.5 ML ORAL.SUSP PO SCH ×2 (05:55→12:26)
[2018-01-03] MEDS: MORPHINE SULFATE INJ 2 MG/ML DISP.SYRIN IV PRN ×3 (06:05→16:18)
--- NOTE | 2018-01-03 06:05 | NUR ---
MORPHINE GIVEN ORDERED PER PT'S REQUEST FOR C/O ABD PAIN. WILL CONT TO MONITOR .
[2018-01-03 06:22] LABS: BASOPHILS % (AUTO) 0.1 % (0.0-2.0); EOSINOPHILS % (AUTO) 0.9 % (0.0-6.0); HEMATOCRIT 40 % (33-45); HEMOGLOBIN 13.4 g/dL (11.5-14.8); LYMPHOCYTES # (AUTO) 1.5 /CMM (0.8-4.8); LYMPHOCYTES % (AUTO) 11.6 % (20.0-44.0); MEAN CORPUSCULAR HGB CONC 34 g/dl (31.0-36.0); MEAN CORPUSCULAR VOLUME 87 fL (82-100); MONOCYTES # (AUTO) 0.9 /CMM (0.1-1.30); MONOCYTES % (AUTO) 6.8 % (2.0-12.0); NEUTROPHILS # (AUTO) 10.2 /CMM (1.8-8.9); NEUTROPHILS % (AUTO) 80.6 % (43.0-81.0); PLATELET COUNT (AUTO) 357 /CMM (150-450); RED BLOOD CELL COUNT(AUTO) 4.55 MIL/uL (4.0-5.2); WHITE BLOOD COUNT (AUTO) 12.7 K/uL (4.3-11.0)
[2018-01-03 06:43] LABS: CALCIUM, SERUM 7.5 mg/dL (8.5-10.1); CARBON DIOXIDE 27 mmol/L (21-32); CHLORIDE 103 mmol/L (98-107); CREATININE 0.6 mg/dL (0.6-1.3); GLUCOSE 105 mg/dL (74-106); MAGNESIUM 1.7 mg/dL (1.8-2.4); PHOSPHORUS 1.7 mg/dL (2.5-4.9); POTASSIUM 3.4 mmol/L (3.5-5.1); SODIUM SERUM 138 mmol/L (136-145); UREA NITROGEN, BLOOD 4 mg/dL (7-18)
--- NOTE | 2018-01-03 06:55 | NUR ---
PT IN BED SLEEPING, AROUSES EASILY. BREATHING EVENLY. NO SOB. NO ACUTE EVENT DURING THE NIGHT. REMAINED ON IVF HYDRATION. MEDICATED ORDERED. NEEDS ATTENDED. BED LOW LOCKED. CALL LIGHT WITHIN REACH.WILL CONT TO MONITOR AND WILL ENDORSE TO AM SHIFT FOR RICHI .
--- NOTE | 2018-01-03 07:25 | NUR ---
ms rn initial notes Received patient in bed, asleep, head of bed elevated, no SOB or distress noted, on 02 @ 3lpm via NC and tolerated well. RANJITH midline in placed and patent. Alert and oriented x 3 as endorsed by machinist 2nd shift. No facial grimace noted. Call light with in patient reach, will continue to monitor.
[2018-01-03 08:00] VITALS: BP 179/76
[2018-01-03] MEDS: VALSARTAN 80 MG TABLET PO SCH (08:40)
[2018-01-03] MEDS: OXYBUTYNIN CHLORIDE ER 5 MG TAB PO SCH (08:41)
[2018-01-03] MEDS: NIFEdipine XL 60 MG TAB PO SCH (08:41)
[2018-01-03] MEDS: CITALOPRAM HYDROBROMIDE 10 MG TABLET PO SCH (08:42)
[2018-01-03] MEDS: CARVEDILOL 12.5 MG TABLET PO SCH ×2 (08:42→16:18)
[2018-01-03] MEDS: hydrALAZINE HCL 25 MG TABLET PO SCH (08:42)
[2018-01-03] MEDS: SIMVASTATIN 40 MG TABLET PO SCH (08:42)
[2018-01-03] MEDS: LEVOTHYROXINE SODIUM 50 MCG TABLET PO SCH (08:42)
[2018-01-03] MEDS ORDERED: POTASSIUM CHLORIDE 20 MEQ TAB.PRT.SR PO SCH (09:30)
[2018-01-03] MEDS: Magnesium 1GM/D5W 100ML PREMIX 100 ML IV SCH ×2 (09:35→10:39)
[2018-01-03] MEDS: IV NS 0.9% 1,000 ML IV PRN (09:39)
[2018-01-03] MEDS ORDERED: K PHOS NEUTRAL 250 MG TABLET PO ONE (11:30)
[2018-01-03] MEDS ORDERED: NA PHOS,M-B/NA PHOS,DI-BA 1 EA ENEMA RC PRN (15:30)
[2018-01-03] MEDS ORDERED: DIPHENOXYLATE HCL/ATROP SULF 1 UDTAB TABLET PO PRN (15:30)
[2018-01-03] MEDS ORDERED: PEG 3350/NA SULF,BICARB,CL/KCL 4,000 ML BOTTLE PO ONE (15:30)
[2018-01-03] MEDS ORDERED: MAGNESIUM CITRATE 296 ML BOTTLE PO ONE (15:30)
[2018-01-03 16:00] VITALS: BP 171/72
[2018-01-03] MEDS: LEVOFLOXACIN 500 MG /D5W 100ML 500 MG in PREMIX 1 EA IV SCH (16:17)
[2018-01-03] MEDS: PANTOPRAZOLE 40 MG VIAL IV SCH (16:18)
--- NOTE | 2018-01-03 19:23 | NUR ---
ms rn closing notes All needs provided, attended, and anticipated. In stable condition at this time. Endorsed to next shift RN to continue care. Patient refused colonoscopy and EGD Beata COMPUTER ASSEMBLER on site and explaiend to the patient the risk and benefits and still refused.
--- NOTE | 2018-01-03 19:30 | NUR ---
RECEIVED PT IN BED AWAKE AND ALERT. BREATHING EVENLY NO SOB. NAD .SKIN WARM AND DRY. NO C/O PAIN OR DISCOMFORT AT THIS TIME. REPORTED LESS DIARRHEA EPISODES. NEEDS ATTENDED. CALL LIGHT WITHIN REACH, WILL CONT TO MONITOR ,
--- NOTE | 2018-01-03 19:51 | NUR ---
received a call from Mehul Lei . FIELD ATTENDANT made aware of the EGD and colonoscopy refusal. the result of the KUB was relayed to the FIELD ATTENDANT w/ a ew order for abd and pelvic CT w/o contrast . prefers to be done tonight. pt made aware. asked pt about the last time she ate something. per her she hasn't been eating anything for the past few hours. technical instructor made aware.
[2018-01-03 20:00] VITALS: BP 153/73
--- NOTE | 2018-01-03 20:30 | NUR ---
PICKED UP FOR CT SCAN IN STABLE CONDITION
--- NOTE | 2018-01-03 20:50 | NUR ---
BACK FROM CT SCAN.
[2018-01-03] MEDS: GABAPENTIN 100 MG CAPSULE PO SCH (21:21)
[2018-01-04] MEDS: METRONIDAZOLE 500 MG TABLET PO SCH ×2 (05:46→12:55)
--- NOTE | 2018-01-04 07:32 | NUR ---
PT IN BED AWAKE AND ALERT. BREATHING EVENLY. NO ACUTE EVENT DURING THE NIGHT. NO MORE EPISODE OF DIARRHEA. W/ ON AND OFF C/O ABD. CRAMPS. REPORT GIVEN TO BERRY FOR RICHI.
--- NOTE | 2018-01-04 07:35 | NUR ---
MS RN NOTES A/O X3, OXYGEN AT 2L VIA NC, NO SOB. CURRENTLY NPO ORDERED, REFUSED EGD, COLONOSCOPY PER REPORT. IVF NS INFUSING AT 75ML/HR. SAFETY MEASURES IN PLACE. WILL CONT TO MONITOR.
[2018-01-04 08:00] VITALS: BP 145/77
[2018-01-04] MEDS: FENTANYL PF 100MCG/2ML AMPUL IV PRN ×2 (08:17→12:53)
--- NOTE | 2018-01-04 08:28 | NUR ---
PATIENT REFUSING EGD AND COLONOSCOPY SINCE YESTERDAY 01/03/18 DESPITE OF EDUCATION AND TEACHING GIVEN, RISK AND BENEFITS OF THE TEST EXPLAINED TO PATIENT, STILL REFUSED. NOTIFIED MAGNET PLACER-MIRA, WILL RESUME DIET ORDERED.
[2018-01-04] MEDS: LEVOTHYROXINE SODIUM 50 MCG TABLET PO SCH (09:11)
[2018-01-04] MEDS: NIFEdipine XL 60 MG TAB PO SCH (09:11)
[2018-01-04] MEDS: CITALOPRAM HYDROBROMIDE 10 MG TABLET PO SCH (09:11)
[2018-01-04] MEDS: CARVEDILOL 12.5 MG TABLET PO SCH ×2 (09:12→16:38)
[2018-01-04] MEDS: SIMVASTATIN 40 MG TABLET PO SCH (09:12)
[2018-01-04] MEDS: VALSARTAN 80 MG TABLET PO SCH (09:12)
[2018-01-04] MEDS: OXYBUTYNIN CHLORIDE ER 5 MG TAB PO SCH (09:12)
[2018-01-04] MEDS: hydrALAZINE HCL 25 MG TABLET PO SCH (09:13)
--- NOTE | 2018-01-04 09:15 | NUR ---
PATIENT C/O ABDOMINAL PAIN 04/21, EPISODE OF SEMI FORMED STOOL, BROWN, NON FOWL ODOR. GIVEN FENTANYL 10MCG IV PRN, WILL REASSESS.
[2018-01-04] MEDS: HYDROCODONE/APAP 5/325MG 1 EACH TABLET PO PRN ×2 (10:00→16:37)
--- NOTE | 2018-01-04 10:10 | NUR ---
ASSISTED PATIENT TO BSC, REPORTED ABDOMINAL PAIN AND EPISODE OF LOOSE BOWEL MOVEMENT, NON FOWL SMELLING STOOL, MODERATE, BROWN COLOR. GIVEN NORCO 5/325MG PO PRN. WILL REASSESS.
[2018-01-04 11:06] LABS: CALCIUM, SERUM 7.5 mg/dL (8.5-10.1); CARBON DIOXIDE 28 mmol/L (21-32); CHLORIDE 100 mmol/L (98-107); CREATININE 0.7 mg/dL (0.6-1.3); GLUCOSE 153 mg/dL (74-106); POTASSIUM 3.3 mmol/L (3.5-5.1); SODIUM SERUM 137 mmol/L (136-145); UREA NITROGEN, BLOOD 4 mg/dL (7-18)
[2018-01-04 11:08] LABS: BASOPHILS % (AUTO) 0.1 % (0.0-2.0); EOSINOPHILS % (AUTO) 0.7 % (0.0-6.0); HEMATOCRIT 43 % (33-45); HEMOGLOBIN 14.4 g/dL (11.5-14.8); LYMPHOCYTES % (AUTO) 11.4 % (20.0-44.0); MEAN CORPUSCULAR HGB CONC 33 g/dl (31.0-36.0); MEAN CORPUSCULAR VOLUME 88 fL (82-100); MONOCYTES # (AUTO) 0.6 /CMM (0.1-1.30); MONOCYTES % (AUTO) 3.3 % (2.0-12.0); NEUTROPHILS # (AUTO) 14.7 /CMM (1.8-8.9); NEUTROPHILS % (AUTO) 84.5 % (43.0-81.0); PLATELET COUNT (AUTO) 384 /CMM (150-450); RDW COEFFICIENT OF VARIATION 14.1 (11.5-15.0); RED BLOOD CELL COUNT(AUTO) 4.92 MIL/uL (4.0-5.2); WHITE BLOOD COUNT (AUTO) 17.4 K/uL (4.3-11.0)
--- NOTE | 2018-01-04 12:34 | NUR ---
PATIENT IS SEEN BY SCRIPT COORDINATOR-TOM, SPOKE TO DAUGHTER JULIAN AND PATIENT. DAUGHTER-JULIAN INSISTING TRANSFER TO [facility] UNDER THE CARE OF PATIENT'S PRIMARY CARE DOCTOR LAVERN. PATIENT AND DAUGHTER RECEIVED TEACHING AND EDUCATION, RISK AND BENEFITS EXPLAINED INVOLVED IN LEAVING THE [facility] AND AND BENEFITS OF CONTINUED TREATMENT, DAUGHTER JULIAN CINTRON SIGNED AMA.
[2018-01-04] MEDS ORDERED: POTASSIUM CHLORIDE 20 MEQ TAB.PRT.SR PO SCH (13:30)
[2018-01-04 16:00] VITALS: BP_SYST 135; BP_SYST 145; BP_DIAS 68; BP_DIAS 77
[2018-01-04 16:38] VITALS: BP 135/68
[2018-01-04] MEDS: PANTOPRAZOLE 40 MG VIAL IV SCH (16:38)
--- NOTE | 2018-01-04 18:57 | NUR ---
MS RN DISCHARGED AMA DENIES PAIN AT THIS TIME, REMAINS A/O X4, VS STABLE, ON 2L OXYGEN VIA NC, SATING 100%, NO SOB, AFEBRILE DURING THE SHIFT. POTASSIUM SUPPLEMENTED ORDERED. NO STOOL COLLECTED FOR REPEAT TEST C-DIFF ORDERED, PATIENT HAD NO BOWEL MOVEMENT SINCE TEST WAS ORDERED AT 1500. LACTIC NEGATIVE, BLOOD CULTURE PENDING. SKIN INTACT, IVC MIDLINE RANJITH REMOVED, GAUZE APPLIED, NO BLEEDING NOTED. PREVIOUSLY WITH DISCHARGE ORDER BUT HELD, PRESCRIPTION NORCO GIVEN TO PATIENT, INDICATION AND POSSIBLE SIDE EFFECT OF THE MEDICATION PROVIDED TO PATIENT, VERBALIZED UNDERSTANDING. PERSONAL BELONGINGS CHECKED AND SEND WITH THE PATIENT UPON DC. COPIES OF PREVIOUS AND CURRENT LAB, IMAGES REPORT, HX AND PHYSICAL, PROGRESS REPORT PROVIDED TO THE PATIENT. PATIENT IS AWARE OF RISK, BENEFITS INVOLVED LEAVING HOSP AMA. AMA FORM PLACE IN THE CHART. PATIENT LEFT HOSP. AMA VIA AMBULANCE, ACCOMPANIED BY HER DAUGHTER-JULIAN.
== END 2018-01-04 19:00 | disposition left against medical advice (07) | DRG 871 ==
LOC: ER 20:19 → MEDSG2 22:12
PROVIDERS: ADMIT Internal Medicine; ATTEND Internal Medicine
PROC: 05HY33Z Insertion of Infusion Device into Upper Vein, Percutaneous Approach (ICD-10-PCS; principal; 2018-01-02)
PROC: B54NZZA Ultrasonography of Left Upper Extremity Veins, Guidance (ICD-10-PCS; 2018-01-02)
DX: A41.9 Sepsis, unspecified organism (principal); J96.01 Acute respiratory failure with hypoxia; J90 Pleural effusion, not elsewhere classified; J84.9 Interstitial pulmonary disease, unspecified; K55.9 Vascular disorder of intestine, unspecified; D64.9 Anemia, unspecified; A04.9 Bacterial intestinal infection, unspecified; K44.9 Diaphragmatic hernia without obstruction or gangrene; E78.5 Hyperlipidemia, unspecified; I10 Essential (primary) hypertension; I25.10 Atherosclerotic heart disease of native coronary artery without angina pectoris; K20.9 Esophagitis, unspecified; D72.829 Elevated white blood cell count, unspecified; E87.6 Hypokalemia; E83.42 Hypomagnesemia; E83.39 Other disorders of phosphorus metabolism; N32.81 Overactive bladder; N20.0 Calculus of kidney; Z66 Do not resuscitate
CPT/HCPCS: 36415; 36569; 70450-TC; 71045-TC; 74018; 80048-TC; 80053-TC; 80061-TC; 80076-TC; 81000-TC; 82272-TC; 83605-TC; 83690-TC; 83735-TC; 84100-TC; 85025-TC; 85378-TC; 85730-TC; 87040-TC; 87045-TC; 87081-TC; 89055; A4216; A4606; C9113; J0610; J0744; J1956; J2270; J2405; J3010; J3475; J3490; J7030; J7050; Q9967; Z7610